=== PATIENT | male | born 1950 | race Caucasian/White ===

== ENCOUNTER 2021-05-07 09:45 | Emergency (ER) | payer OTHER ==
[2021-05-07 11:30] LABS: HEMOGLOBIN 16.5 gm/dl (14.0-17.5); RED BLOOD COUNT 5.16 M/UL (4.20-5.50); WHITE BLOOD COUNT 4.5 K/UL (4.5-11.0)
[2021-05-07 12:21] LABS: BUN/CREATININE RATIO 17 (0-10)
[2021-05-07] MEDS ORDERED: ZOFRAN ODT 4 MG4 MG SL (14:58)
[2021-05-07] MEDS ORDERED: ACETAMINOPHEN500 MG PO (14:58)
== END 2021-05-07 15:13 | disposition home or self-care (01) ==
LOC: ER1 09:45
PROVIDERS: Physician Assistant
DX: U07.1 COVID-19 (principal); E11.9 Type 2 diabetes mellitus without complications; Z88.2 Allergy status to sulfonamides
CPT/HCPCS: 71045; 80053; 82550; 82553; 83874; 84484; 85025; 93005; 99284